=== PATIENT | male | born 2000 | race Caucasian/White ===

== ENCOUNTER 2019-03-08 21:47 | Emergency (ER) | payer OTHER ==
[2019-03-08 22:31] LABS: Urine Blood NEGATIVE (NEG); Urine Glucose NEGATIVE (NEG); Urine Specific Gravity 1.015 (1.005-1.030); Urine pH >8.5 (5.0-7.0)
[2019-03-08 22:32] LABS: Urine Protein 1+ (NEG)
[2019-03-08] MEDS ORDERED: NA CHLORIDE 0.9% 1,000 ML ONE (22:34)
[2019-03-08] MEDS ORDERED: KETOROLAC 30 MG/ML INJ ONE ×2 (22:34→22:38)
[2019-03-08 23:34] LABS: Urine Amorphous Sediment 4+ /HPF (NONE SEEN); Urine Bacteria <20 /HPF (NONE SEEN); Urine Culture Reflex Order NOT NEEDED; Urine RBC NONE SEEN /HPF (NONE SEEN)
--- NOTE | 2019-03-09 00:04 | ER ---
Nurse's Notes [facility] Name: Sidney Balderas Jr Age: 18 yrs Sex: Male : 2000 Arrival Date: 03/08/2019 Time: 21:50 Bed 19 Private MD: Diagnosis: Unspecified renal colic Presentation: 03/08 21:53 Presenting complaint: Patient states: L low back pain since yesterday. States he has aa1 been passing kidney stones x 2 weeks but has not been able to see them, he just feels them. Transition of care: patient was not received from another setting of care. Onset of symptoms was March 07, 2019. Risk Assessment: Do you want to hurt yourself or someone else? Patient reports no desire to harm self or others. Initial Sepsis Screen: Does the patient meet any 2 criteria? No. Patient's initial sepsis screen is negative. Does the patient have a suspected source of infection? No. Patient's initial sepsis screen is negative. Care prior to arrival: None. 21:53 Method Of Arrival: Ambulatory aa1 21:53 Acuity: SUMMER 3 aa1 Triage Assessment: 21:54 General: Appears in no apparent distress. comfortable, Behavior is calm, cooperative, aa1 appropriate for age. Historical: - Allergies: 21:54 No Known Allergies; aa1 - Home Meds: 21:54 None [Active]; aa1 - PMHx: 21:54 ADD/ADHD; Kidney stones; aa1 - PSHx: 21:54 None; aa1 - Immunization history:: Flu vaccine is not up to date. - Social history:: Smoking status: Patient/guardian denies using tobacco. - Ebola Screening: : No symptoms or risks identified at this time. Screenin:00 Abuse screen: Denies threats or abuse. Denies injuries from another. Nutritional tl1 screening: No deficits noted. Tuberculosis screening: No symptoms or risk factors identified. Fall Risk IV access (20 points). Assessment: 21:54 General: Appears in no apparent distress. Behavior is calm, cooperative, appropriate tl1 for age. Pain: Complains of pain in left low back Pain currently is 5 out of 10 on a pain scale. Quality of pain is described as aching, pressure. Neuro: Level of Consciousness is awake, alert, obeys commands, Oriented to person, place, time, situation. Cardiovascular: Denies chest pain. Respiratory: Airway is patent Trachea midline Respiratory effort is even, unlabored, Breath sounds are clear bilaterally. GI: Abdomen is non-distended, Bowel sounds present X 4 quads. Abd is soft and non tender X 4 quads. : No signs and/or symptoms were reported regarding the genitourinary system. Musculoskeletal: Reports pain in left low back. 03/09 00:07 Reassessment: Patient and/or family updated on plan of care and expected duration. Pain tl1 level reassessed. Patient is alert, oriented x 3, equal unlabored respirations, skin warm/dry/pink. Patient denies pain at this time. Patient states feeling better. Patient states symptoms have improved. 00:16 Reassessment: Chem 7 cancelled by provider. Instructed patient to follow up with Dr karol Vásquez on Saturday. Vital Signs: 03/08 21:54 BP 139 / 93; Pulse 91; Resp 18; Temp 97.4; Pulse Ox 100% on R/A; Weight 95.25 kg; aa1 Height 5 ft. 8 in. (172.72 cm); Pain 5/10; 22:46 BP 131 / 89; Pulse 75; Resp 17; Pulse Ox 99% ; Pain 4/10; tl1 03/09 00:05 BP 127 / 89; Pulse 79; Resp 16; Temp 97.6; Pulse Ox 100% ; Pain 0/10; tl1 03/08 21:54 Body Mass Index 31.93 (95.25 kg, 172.72 cm) aa1 ED Course: 03/08 21:50 Patient arrived in ED. ag3 21:54 Triage completed. aa1 21:54 Arm band placed on right wrist. Patient placed in an exam room, on a stretcher. aa1 22:00 Patient has correct armband on for positive identification. Bed in low position. Call tl1 light in reach. Side rails up X 1. 22:05 Marina Muse [facility]-C [facility]. snw 22:05 Lex Daniels MD is Attending Physician. snw 22:15 Inserted saline lock: 20 gauge in right antecubital area, using aseptic technique. tl1 Blood collected. 22:31 Paige Caballero RN is Primary Nurse. tl1 22:31 No provider procedures requiring assistance completed. tl1 03/09 00:02 Erna Vásquez MD is Referral Physician. snw 00:07 IV discontinued, intact, bleeding controlled, No redness/swelling at site. Pressure tl1 dressing applied. Administered Medications: 03/08 22:16 CANCELLED (other intervention used): TORadol 30 mg IM once snw 22:20 Drug: NS 0.9% 1000 ml Route: IV; Rate: 1 bolus; Site: right antecubital; tl1 23:30 Follow up: IV Status: Completed infusion; IV Intake: 1000ml tl1 22:21 Drug: TORadol 30 mg Route: IVP; Infused Over: 2 mins; Site: right antecubital; tl1 23:30 Follow up: Response: No adverse reaction; Marked relief of symptoms; Pain is decreased tl1 Intake: 23:30 IV: 1000ml; Total: 1000ml. tl1 Outcome: 03/09 00:03 Discharge ordered by . snw 00:17 Discharged to home ambulatory, with family. tl1 00:17 Condition: good 00:17 Discharge instructions given to patient, family, Instructed on discharge instructions, follow up and referral plans. medication usage, Demonstrated understanding of instructions, follow-up care, medications, Prescriptions given X 1. 00:18 Patient left the ED. tl1 Signatures: Mayra Benjamin RN RN aa1 Marina Muse, SENIOR REVENUE ACCOUNTANT-C SENIOR REVENUE ACCOUNTANT-Csnw Paige Caballero RN RN tl1 Anabela De Jesus ag3
--- NOTE | 2019-03-09 00:04 | EDPHYS ---
Physician Documentation [facility] Name: Sidney Balderas Jr Age: 18 yrs Sex: Male : 2000 Arrival Date: 03/08/2019 Time: 21:50 Bed 19 Private MD: ED Physician Lex Daniels HPI: 03/08 22:23 This 18 yrs old Male presents to ER via Ambulatory with complaints of Back snw Pain. 22:23 The patient presents with pain that is acute, with no known mechanism of injury. The snw symptoms are located in the left low back. Onset: The symptoms/episode began/occurred gradually, 2 day(s) ago. The pain does not radiate. Associated signs and symptoms: Pertinent positives: none. The problem was sustained history of kidney stones. Severity of symptoms: At their worst the symptoms were very mild. The patient has experienced similar episodes in the past. The patient has not recently seen a physician, and does not have an established primary care provider. Historical: - Allergies: 21:54 No Known Allergies; aa1 - Home Meds: 21:54 None [Active]; aa1 - PMHx: 21:54 ADD/ADHD; Kidney stones; aa1 - PSHx: 21:54 None; aa1 - Immunization history:: Flu vaccine is not up to date. - Social history:: Smoking status: Patient/guardian denies using tobacco. - Ebola Screening: : No symptoms or risks identified at this time. ROS: 22:22 Constitutional: Negative for fever, chills, and weight loss, Eyes: Negative for injury, snw pain, redness, and discharge, ENT: Negative for injury, pain, and discharge, Neck: Negative for injury, pain, and swelling, Cardiovascular: Negative for chest pain, palpitations, and edema, Respiratory: Negative for shortness of breath, cough, wheezing, and pleuritic chest pain, Abdomen/GI: Negative for abdominal pain, nausea, vomiting, diarrhea, and constipation, Back: Negative for injury, left flank discomfort : Negative for injury, bleeding, discharge, and swelling, passes kidney stone weekly x 2. MS/Extremity: Negative for injury and deformity, Skin: Negative for injury, rash, and discoloration, Neuro: Negative for headache, weakness, numbness, tingling, and seizure. Exam: 22:22 Constitutional: This is a well developed, well nourished patient who is awake, alert, snw and in no acute distress. Head/Face: Normocephalic, atraumatic. Eyes: Pupils equal round and reactive to light, extra-ocular motions intact. Lids and lashes normal. Conjunctiva and sclera are non-icteric and not injected. Cornea within normal limits. Periorbital areas with no swelling, redness, or edema. ENT: Nares patent. No nasal discharge, no septal abnormalities noted. Tympanic membranes are normal and external auditory canals are clear. Oropharynx with no redness, swelling, or masses, exudates, or evidence of obstruction, uvula midline. Mucous membranes moist. Neck: Trachea midline, no thyromegaly or masses palpated, and no cervical lymphadenopathy. Supple, full range of motion without nuchal rigidity, or vertebral point tenderness. No Meningismus. Chest/axilla: Normal chest wall appearance and motion. Nontender with no deformity. No lesions are appreciated. Cardiovascular: Regular rate and rhythm with a normal S1 and S2. No gallops, murmurs, or rubs. Normal PMI, no JVD. No pulse deficits. Respiratory: Lungs have equal breath sounds bilaterally, clear to auscultation and percussion. No rales, rhonchi or wheezes noted. No increased work of breathing, no retractions or nasal flaring. Abdomen/GI: Soft, non-tender, with normal bowel sounds. No distension or tympany. No guarding or rebound. No evidence of tenderness throughout. Skin: Warm, dry with normal turgor. Normal color with no rashes, no lesions, and no evidence of cellulitis. MS/ Extremity: Pulses equal, no cyanosis. Neurovascular intact. Full, normal range of motion. Neuro: Awake and alert, GCS 15, oriented to person, place, time, and situation. Cranial nerves II-XII grossly intact. Motor strength 5/5 in all extremities. Sensory grossly intact. Cerebellar exam normal. Normal gait. Psych: Awake, alert, with orientation to person, place and time. Behavior, mood, and affect are within normal limits. 22:22 Back: pain, that is very mild, ROM is normal, normal spinal alignment noted. Vital Signs: 21:54 BP 139 / 93; Pulse 91; Resp 18; Temp 97.4; Pulse Ox 100% on R/A; Weight 95.25 kg; aa1 Height 5 ft. 8 in. (172.72 cm); Pain 5/10; 22:46 BP 131 / 89; Pulse 75; Resp 17; Pulse Ox 99% ; Pain 4/10; tl1 03/09 00:05 BP 127 / 89; Pulse 79; Resp 16; Temp 97.6; Pulse Ox 100% ; Pain 0/10; tl1 03/08 21:54 Body Mass Index 31.93 (95.25 kg, 172.72 cm) aa1 MDM: 03/08 22:05 Patient medically screened. snw 03/09 00:12 Data reviewed: vital signs, nurses notes. Data interpreted: Pulse oximetry: on room air snw is 100 %. Interpretation: normal. Counseling: I had a detailed discussion with the patient and/or guardian regarding: the historical points, exam findings, and any diagnostic results supporting the discharge/admit diagnosis, the presence of at least one elevated blood pressure reading (>120/80) during this emergency department visit, lab results, the need for outpatient follow up, for definitive care, to return to the emergency department if symptoms worsen or persist or if there are any questions or concerns that arise at home. Special discussion: Based on the history and exam findings, there is no indication for further emergent testing or inpatient evaluation. I discussed with the patient/guardian the need to see the primary care provider for further evaluation of the symptoms. I discussed with the patient/guardian the need to see the urologist for further evaluation of the symptoms. 03/08 22:06 Order name: Urine Culture snw 03/08 22:06 Order name: Urine Microscopic Only; Complete Time: 00:02 snw 03/08 22:12 Order name: Urine Dipstick--Ancillary (enter results); Complete Time: 22:46 cm6 03/08 22:06 Order name: Urine Dipstick-Ancillary (obtain specimen); Complete Time: 22:33 snw Administered Medications: 03/08 22:16 CANCELLED (other intervention used): TORadol 30 mg IM once snw 22:20 Drug: NS 0.9% 1000 ml Route: IV; Rate: 1 bolus; Site: right antecubital; tl1 23:30 Follow up: IV Status: Completed infusion; IV Intake: 1000ml tl1 22:21 Drug: TORadol 30 mg Route: IVP; Infused Over: 2 mins; Site: right antecubital; tl1 23:30 Follow up: Response: No adverse reaction; Marked relief of symptoms; Pain is decreased tl1 Disposition: 03/09/19 00:03 Discharged to Home. Impression: Unspecified renal colic. - Condition is Stable. - Discharge Instructions: Hypertension, Kidney Stones, Renal Colic, Dietary Guidelines to Help Prevent Kidney Stones, Rehydration, Adult. - Prescriptions for Diclofenac Sodium 75 mg Oral Tablet Sustained Release - take 1 tablet by ORAL route 2 times per day; 30 tablet. - Medication Reconciliation Form, Thank You Letter, Antibiotic Education, Prescription Opioid Use, Work release form form. - Follow up: Private Physician; When: 1 - 2 days; Reason: Recheck today's complaints, Continuance of care, Re-evaluation by your physician. Follow up: Emergency Department; When: As needed; Reason: Worsening of condition. Follow up: Erna Vásquez MD; When: 1 week; Reason: Recheck today's complaints, Continuance of care. Signatures: Dispatcher [employer] [facility] Mayra Benjamin, RN RN aa1 Marina Muse, KIER HAND-C KIER HAND-Csnw Paige Caballero, RN RN tl1 Corrections: (The following items were deleted from the chart) 22:16 22:06 TORadol 30 mg IM once ordered. snw snw 03/09 00:06 03/08 22:18 BASIC METABOLIC PANEL+C.LAB.BRZ ordered. [facility] 03/09 00:18 00:03 03/09/2019 00:03 Discharged to Home. Impression: Unspecified renal colic. tl1 Condition is Stable. Forms are Medication Reconciliation Form, Thank You Letter, Antibiotic Education, Prescription Opioid Use. Follow up: Private Physician; When: 1 - 2 days; Reason: Recheck today's complaints, Continuance of care, Re-evaluation by your physician. Follow up: Emergency Department; When: As needed; Reason: Worsening of condition. Follow up: Erna Vásquez; When: 1 week; Reason: Recheck today's complaints, Continuance of care. snw
== END 2019-03-09 00:18 | disposition home or self-care (01) ==
LOC: ER 21:47
DX: N23 Unspecified renal colic (principal)
CPT/HCPCS: 36415; 81003; 81015; 87086; 87088; 96361; 96374; 99284; J7030

== ENCOUNTER 2022-06-14 00:57 | Emergency (ER) | payer OTHER, SELFPAY ==
--- OUTSIDE RECORDS SUMMARY | 2022-06-14 01:00 | XMS REPORT | Continuity of Care Document ---
:2000 Author Organization [facility] t Address [address] [place] [address] Care Team Providers Name Role Phone GoodwinHaydee Attending Clinician Unavailable Venita Dorantes RN Attending Clinician Unavailable Marky Caicedo Attending Clinician Marky SCHAFER Attending Clinician Unavailable Payers Payer Name Policy Type Policy Number Effective Date Expiration Date S ource Problems This patient has no known problems. Allergies, Adverse Reactions, Alerts Allergy Allergy Status Severity Reaction(s) Onset Inactive Treating Comm ents Source Name Type Date Date Clinician NO KNOWN Drug Active [facility] ALLERGIE Class ity of [facility] Social History Social Habit Start Date Stop Date Quantity Comments Source Sex [facility] Exposure to SARS-CoV-2 Not sure [facility] [place] [facility] Smoking Status Start Date Stop Date Source Unknown if ever smoked [facility] Medications Ordered Filled Start Stop Current Ordering Indication Dosage Frequency Signature Comments Components Source Medication Medication Date Date Medication? Clinician (SIG) Name Name benzonatate 2019-09 Yes [id number] 200mg Take 1 [facility] 200 mg 2-11 capsule by ity of capsule 00:00: mouth 3 [place] 00 (three) Medical times Branch daily as needed for Cough for up to 20 doses. ibuprofen 2019-09 Yes [id number] 600mg Take 1 [facility] 600 mg 2-11 tablet by ity of tablet 00:00: mouth [place] 00 every 6 Medical (six) Branch hours as needed for Pain (scale 4-6). predniSONE 2019-09 Yes [id number] 1 PO BID x Univers 20 mg 2-11 4 days ity of tablet 00:00: [place] 00 [facility] Branch benzonatate 2019-09 Yes [id number] 200mg Take 1 Univers 200 mg 2-11 capsule by ity of capsule 00:00: mouth 3 00 (three) Medical times Branch daily as needed for Cough for up to 20 doses. ibuprofen 2019-09 Yes [id number] 600mg Take 1 [facility] 600 mg 2-11 tablet by ity of tablet 00:00: mouth [place] 00 every 6 Medical (six) Branch hours as needed for Pain (scale 4-6). predniSONE 2019-09 Yes [id number] 1 PO BID x Univers 20 mg 2-11 4 days ity of tablet 00:00: [place] 00 Medical Branch Vital Signs Vital Name Observation Time Observation Value Comments Source Body temperature 2020-09-10 01:13:00 37.94 Khushbu [facility] Respiratory rate 2020-09-10 01:13:00 18 /min [facility] Body height 2020-09-10 01:13:00 172.7 cm [facility] Body weight 2020-09-10 01:13:00 95.255 kg [facility] BMI 2020-09-10 01:13:00 31.93 kg/m2 [facility] Oxygen saturation in 2020-09-10 01:13:00 99 /min [facility] Arterial blood by [facility] Pulse oximetry Branch Heart rate 2020-09-10 01:13:00 103 /min [facility] Procedures Procedure Date / Time Performed Performing Clinician Sour e NOTICE OF PRIVACY 2020-09-10 01:06:32 Doctor Unassigned, No [facility] Name [facility] Branch CONSENT/REFUSAL FOR 2020-09-10 01:06:08 Doctor Unassigned, No [facility] DIAGNOSIS AND Name Medical Branch TREATMENT Encounters Start End Encounter Admission Attending Care Care Encounter Source Date/Time Date/Time Type Type Clinicians Facility Department ID 2021-10-25 Outpatient Haydee Goodwin [facility] [id number] 2 Common 12:34:02 [id number] [facility] 2021-10-25 [id number] Common 12:32:45 [id number] [facility] 2021-10-25 Outpatient Hadyee Goodwin [facility] [id number] 2 Common 12:19:39 [id number] [facility] 2020-11-27 2020-11-27 Outpatient [facility] [id number] Common 00:00:00 00:00:00 [facility] 2020-11-25 2020-11-25 Outpatient [facility] [id number] Common 00:00:00 00:00:00 [facility] 2020-09-10 2020-09-10 Telephone KATHERINE Dorantes [id number] Univers 00:00:00 00:00:00 Venita HOWARD [id number] it [facility] [id number] Juni as [id number] [facility] 019 Branch 2020-09-09 2020-09-09 Emergency Marky Schafer [facility] [id number] Univers 19:13:00 20:00:00 Rafia Quinn [id number] i [id number] [facility] [id number] [facility] 084 Branch 2020-09-09 2020-09-09 Emergency X Marky SCHAFER [facility] ERT [id number] Univers 19:08:00 19:08:00 ity [facility] Results This patient has no known results.
[2022-06-14] MEDS ORDERED: MORPHINE 4 MG/ML SYR ONE (02:08)
[2022-06-14] MEDS ORDERED: ONDANSETRON 4 MG/2 ML VIAL ONE (02:08)
[2022-06-14] MEDS ORDERED: NA CHLORIDE 0.9% 1,000 ML ONE (02:08)
[2022-06-14 02:39] LABS: Absolute Lymphocytes (CBC) 1.8 K/uL (0.7-4.9); Lymphocytes % 12.5 % (15.3-44.8); MCV 81.5 fL (80-100); MPV 8.7 fL (7.6-11.3); RBC Red Blood Cell Count 5.27 M/uL (4.33-5.43)
[2022-06-14 02:51] LABS: Albumin 4.4 g/dL (3.4-5.0); Bilirubin Total 0.6 mg/dL (0.2-1.0); Potassium 3.3 mmol/L (3.5-5.1); Protein, Total 7.7 g/dL (6.4-8.2)
[2022-06-14 02:52] LABS: Urine Blood 2+ (Negative); Urine Glucose Negative (Negative); Urine Protein Negative (Negative); Urine Specific Gravity >=1.030 (1.005-1.030)
[2022-06-14] MEDS ORDERED: KETOROLAC 30 MG/ML INJ ONE (02:55)
--- NOTE | 2022-06-14 03:38 | ER ---
Nurse's Notes [facility] Name: Sidney Balderas Jr Age: 22 yrs Sex: Male : 2000 Arrival Date: 06/14/2022 Time: 01:00 Bed 12 Private MD: Diagnosis: Right renal calculus at [facility].;Right flank pain Presentation: 06/14 01:08 Chief complaint: Patient states: he is having right sided flank pain since 1730 last bb night has vomited x 1 has past history of kidney stones a while ago. Coronavirus screen: At this time, the client does not indicate any symptoms associated with coronavirus-19. Ebola Screen: No symptoms or risks identified at this time. Initial Sepsis Screen: Does the patient meet any 2 criteria? No. Patient's initial sepsis screen is negative. Does the patient have a suspected source of infection? No. Patient's initial sepsis screen is negative. Risk Assessment: Do you want to hurt yourself or someone else? Patient reports no desire to harm self or others. Onset of symptoms was June 13, 2022. 01:08 Method Of Arrival: Ambulatory bb 01:08 Acuity: SUMMER 3 bb Historical: - Allergies: 01:10 No Known Allergies; bb - Home Meds: 01:10 None [Active]; bb - PMHx: 01:10 ADD/ADHD; Kidney stones; bb - Immunization history:: Client reports having NOT received the Covid vaccine. - Social history:: Smoking status: Patient denies any tobacco usage or history of. Screenin:19 Abuse screen: Denies threats or abuse. Nutritional screening: No deficits noted. bb Tuberculosis screening: No symptoms or risk factors identified. Fall Risk None identified. Assessment: 02:19 General: Appears in no apparent distress. uncomfortable, Behavior is calm, cooperative. bb Pain: Complains of pain in right flank Pain currently is 8 out of 10 on a pain scale. Neuro: Level of Consciousness is awake, alert, obeys commands, Oriented to person, place, time, situation. Cardiovascular: Capillary refill < 3 seconds Patient's skin is warm and dry. Respiratory: Respiratory effort is even, unlabored, Respiratory pattern is regular. GI: Abdomen is non-distended, Reports vomiting, x 1. Derm: Skin is pink, warm \T\ dry. Musculoskeletal: Circulation, motion, and sensation intact. 02:28 Reassessment: pt to CT via wheelchair accompanied by traffic engineering technician. bb 02:42 Reassessment: pt states pain went down for a little bit but is worse again Dr Dave bb notified new orders received pt medicated see NOV. 03:52 Reassessment: Patient is alert, oriented x 3, equal unlabored respirations, skin bb warm/dry/pink. pt verbalized understanding of and agrees to plan of care discharge instructions given pt ambulated with steady gait to exit accompanied by family Patient states feeling better. Patient states symptoms have improved. Vital Signs: 01:08 BP 148 / 100; Pulse 73; Resp 16 S; Temp 98.6(O); Pulse Ox 100% on R/A; Weight 83.91 kg bb (R); Height 5 ft. 7 in. (170.18 cm) (R); Pain 7/10; 02:43 BP 137 / 103; Pulse 81; Resp 16 S; Pulse Ox 99% on R/A; Pain 6/10; bb 03:54 BP 124 / 92; Pulse 79; Resp 16 S; Pulse Ox 99% on R/A; Pain 4/10; bb 01:08 Body Mass Index 28.97 (83.91 kg, 170.18 cm) bb ED Course: 01:00 Patient arrived in ED. ja2 01:10 Triage completed. bb 01:10 Arm band placed on Patient placed in an exam room, on a stretcher, on pulse oximetry. bb Family accompanied patient. 01:32 Jassi Dave MD is Attending Physician. kdr 01:40 Diana Stallworth RN is Primary Nurse. bb 02:05 Initial lab(s) drawn, by la, sent to lab. Urine collected: clean catch specimen, clear. bb Inserted saline lock: 20 gauge in right antecubital area, using aseptic technique. Blood collected. 02:19 Patient has correct armband on for positive identification. Bed in low position. Call bb light in reach. Side rails up X 1. Adult w/ patient. Pulse ox on. NIBP on. Warm blanket given. 02:42 CT Stone Protocol In Process Unspecified. EDMS 03:37 Ovi Tolliver MD is Referral Physician. kdr 03:54 No provider procedures requiring assistance completed. IV discontinued, intact, bb bleeding controlled, No redness/swelling at site. Pressure dressing applied. Administered Medications: 02:06 Drug: NS 0.9% 1000 ml Route: IV; Rate: 1 bolus; Site: right antecubital; bb 03:00 Follow up: IV Status: Completed infusion; IV Intake: 950ml bb 02:06 Drug: Zofran (Ondansetron) 4 mg Route: IVP; Site: right antecubital; bb 02:44 Follow up: Response: No adverse reaction bb 02:08 Drug: morphine 4 mg Route: IVP; Infused Over: 4 mins; Site: right antecubital; bb 02:44 Follow up: Response: No adverse reaction; Pain is decreased bb 02:48 Drug: Ketorolac 15 mg Route: IVP; Site: right antecubital; bb 03:30 Follow up: Response: Pain is decreased bb Medication: 02:19 VIS not applicable for this client. bb Intake: 03:00 IV: 950ml; Total: 950ml. bb Outcome: 03:38 Discharge ordered by . kdr 03:55 Discharged to home ambulatory, with family. bb 03:55 Condition: stable 03:55 Discharge instructions given to patient, Instructed on discharge instructions, follow up and referral plans. no driving heavy equipment, medication usage, Demonstrated understanding of instructions, follow-up care, medications, Prescriptions given X 4. 03:55 Patient left the ED. bb Signatures: Dispatcher [employer] EDJassi Powers MD MD kdr Ballard, Brenda, RN RN Ayah Dave
--- NOTE | 2022-06-14 03:39 | EDPHYS ---
Physician Documentation [facility] Name: Sidney Balderas Jr Age: 22 yrs Sex: Male : 2000 Arrival Date: 06/14/2022 Time: 01:00 Bed 12 Private MD: ED Physician Jassi Dave HPI: 06/14 04:34 This 22 yrs old Male presents to ER via Ambulatory with complaints of Back kdr Pain, Flank Pain. 04:35 Patient states that he has been having right-sided flank pain since about 5:30 PM this kdr last evening. He has vomited 1 time. He does have a past history of kidney stones with the last episode being about 1 year ago.. Severity of symptoms: At their worst the symptoms were mild moderate just prior to arrival, in the emergency department the symptoms are unchanged. The patient has experienced a previous episode. The patient has not recently seen a physician. Historical: - Allergies: 01:10 No Known Allergies; bb - Home Meds: 01:10 None [Active]; bb - PMHx: 01:10 ADD/ADHD; Kidney stones; bb - Immunization history:: Client reports having NOT received the Covid vaccine. - Social history:: Smoking status: Patient denies any tobacco usage or history of. ROS: 04:35 Constitutional: Negative for fever, chills, and weight loss, Eyes: Negative for injury, kdr pain, redness, and discharge, Neck: Negative for injury, pain, and swelling, Cardiovascular: Negative for chest pain, palpitations, and edema, Respiratory: Negative for shortness of breath, cough, wheezing, and pleuritic chest pain, Abdomen/GI: Negative for abdominal pain, nausea, vomiting, diarrhea, and constipation, Back: Negative for injury and pain, MS/Extremity: Negative for injury and deformity, Skin: Negative for injury, rash, and discoloration, Neuro: Negative for headache, weakness, numbness, tingling, and seizure activity. Psych: Negative for depression, anxiety, suicide ideation, homicidal ideation, and hallucinations, Allergy/Immunology: Negative for hives, rash, and allergies, Endocrine: Negative for neck swelling, polydipsia, polyuria, polyphagia, and marked weight changes, Hematologic/Lymphatic: Negative for swollen nodes, abnormal bleeding, and unusual bruising. Exam: 04:35 Constitutional: This is a well developed, well nourished patient who is awake, alert, kdr and in no acute distress. Head/Face: Normocephalic, atraumatic. Eyes: Pupils equal round and reactive to light, extra-ocular motions intact. Lids and lashes normal. Conjunctiva and sclera are non-icteric and not injected. Cornea within normal limits. Periorbital areas with no swelling, redness, or edema. Neck: Trachea midline, no thyromegaly or masses palpated, and no cervical lymphadenopathy. Supple, full range of motion without nuchal rigidity, or vertebral point tenderness. No Meningismus. Chest/axilla: Normal chest wall appearance and motion. Nontender with no deformity. No lesions are appreciated. Cardiovascular: Regular rate and rhythm with a normal S1 and S2. No gallops, murmurs, or rubs. Normal PMI, no JVD. No pulse deficits. Respiratory: Lungs have equal breath sounds bilaterally, clear to auscultation and percussion. No rales, rhonchi or wheezes noted. No increased work of breathing, no retractions or nasal flaring. Abdomen/GI: Soft, non-tender, with normal bowel sounds. No distension or tympany. No guarding or rebound. No evidence of tenderness throughout. Back: No spinal tenderness. No costovertebral tenderness. Full range of motion. Skin: Warm, dry with normal turgor. Normal color with no rashes, no lesions, and no evidence of cellulitis. MS/ Extremity: Pulses equal, no cyanosis. Neurovascular intact. Full, normal range of motion. Neuro: Awake and alert, GCS 15, oriented to person, place, time, and situation. Cranial nerves II-XII grossly intact. Motor strength 5/5 in all extremities. Sensory grossly intact. Cerebellar exam normal. Normal gait. Psych: Awake, alert, with orientation to person, place and time. Behavior, mood, and affect are within normal limits. Vital Signs: 01:08 BP 148 / 100; Pulse 73; Resp 16 S; Temp 98.6(O); Pulse Ox 100% on R/A; Weight 83.91 kg bb (R); Height 5 ft. 7 in. (170.18 cm) (R); Pain 7/10; 02:43 BP 137 / 103; Pulse 81; Resp 16 S; Pulse Ox 99% on R/A; Pain 6/10; bb 03:54 BP 124 / 92; Pulse 79; Resp 16 S; Pulse Ox 99% on R/A; Pain 4/10; bb 01:08 Body Mass Index 28.97 (83.91 kg, 170.18 cm) bb MDM: 03:38 Patient medically screened. kdr 04:35 Data reviewed: vital signs, nurses notes, old medical records, radiologic studies. kdr Counseling: I had a detailed discussion with the patient and/or guardian regarding: the historical points, exam findings, and any diagnostic results supporting the discharge/admit diagnosis, lab results, radiology results, the need for outpatient follow up. 06/14 01:38 Order name: CBC with Diff; Complete Time: 03:33 06/14 01:38 Order name: CMP; Complete Time: 03:33 bb 06/14 01:38 Order name: CT Stone Protocol 06/14 02:53 Order name: Urine Dipstick-Ancillary; Complete Time: 03:33 EDMS 06/14 01:38 Order name: IV Saline Lock; Complete Time: 02:19 bb 06/14 01:38 Order name: Labs collected and sent; Complete Time: 02:19 bb 06/14 01:39 Order name: Urine Dipstick-Ancillary (obtain specimen); Complete Time: 02:19 bb Administered Medications: 02:06 Drug: NS 0.9% 1000 ml Route: IV; Rate: 1 bolus; Site: right antecubital; bb 03:00 Follow up: IV Status: Completed infusion; IV Intake: 950ml bb 02:06 Drug: Zofran (Ondansetron) 4 mg Route: IVP; Site: right antecubital; bb 02:44 Follow up: Response: No adverse reaction bb 02:08 Drug: morphine 4 mg Route: IVP; Infused Over: 4 mins; Site: right antecubital; bb 02:44 Follow up: Response: No adverse reaction; Pain is decreased bb 02:48 Drug: Ketorolac 15 mg Route: IVP; Site: right antecubital; bb 03:30 Follow up: Response: Pain is decreased bb Disposition Summary: 06/14/22 03:38 Discharge Ordered Location: Home kdr Problem: new kdr Symptoms: have improved kdr Condition: Stable kdr Diagnosis - Right renal calculus at UPJ. kdr - Right flank pain kdr Followup: kdr - With: Private Physician - When: 2 - 3 days - Reason: If symptoms return, Further diagnostic work-up, Recheck today's complaints, Continuance of care, Re-evaluation by your physician Followup: kdr - With: Ovi Tolliver MD - When: 2 - 3 days - Reason: If symptoms return, Further diagnostic work-up, Recheck today's complaints, Continuance of care, Re-evaluation by your physician Discharge Instructions: - Discharge Summary Sheet kdr - Kidney Stones, [id number] kdr Forms: - Medication Reconciliation Form kdr - Thank You Letter kdr - Antibiotic Education kdr - Prescription Opioid Use kdr Prescriptions: - Flomax 0.4 mg Oral capsule - take 1 capsule by ORAL route once daily 1/2 hour following the same meal each kdr day; 10 capsule; Refills: 0, Product Selection Permitted - Zofran 4 mg Oral Tablet - take 1 tablet by ORAL route every 4-6 hours As needed; 12 tablet; Refills: 0, kdr Product Selection Permitted - Tramadol 50 mg Oral Tablet - take 1 tablet by ORAL route every 8 hours as needed; 12 tablet; Refills: 0, kdr Product Selection Permitted - Bactrim DS 800-160 mg Oral Tablet - take 1 tablet by ORAL route every 12 hours for 3 days; 6 tablet; Refills: 0, kdr Product Selection Permitted Signatures: Dispatcher [employer] Jassi Chase MD MD kdr Diana Stallworth, RN RN bb
--- NOTE | 2022-06-14 12:32 | RAD REPORT ---
EXAM DESCRIPTION: CT - Stone Protocol - 06/14/2022 8:19 am CLINICAL HISTORY: 22 years, Male, Flank pain, kidney stone suspected COMPARISON: 03/14/2015. TECHNIQUE: Multiple transaxial tomograms of the abdomen and pelvis were performed from the lung base s to the symphysis pubis 3 mm slice thickness at 3 mm interval reconstruction, without administration of IV and oral contrast. Multiplanar reformats in the sagittal and coronal plane were generated and reviewed. This exam was performed according to our departmental dose-optimization protocol, which includes auto mated exposure control, adjustment of the mA and/or kV according to patient size and/or use of iterat aditi reconstruction technique. FINDINGS: The lack of IV and oral contrast limits evaluation of solid organs, subtle lesions cannot be excluded. The lung bases demonstrate to be clear. Grossly the unopacified liver, gallbladder, pancreas, spleen and adrenal glands demonstrate to be wit hin normal limits, no significant focal lesions were identified. There is slight increased size of the right kidney with right hydronephrosis and proximal right hydro ureter up to the level of the UPJ where there is a 4.6 x 4.7 mm calculus on axial image 78 and de dios l image 40. There is a residual calculus within the lower pole measuring 7.3 mm on image 64. The left kidney demonstrate a 5.2 mm upper pole calculus on image 49. There is no evidence for left h ydronephrosis and pressure left hydroureter. Grossly the unopacified stomach, small bowel and large bowel demonstrate to be within normal limits. There is no evidence for bowel dilatation/or free air. The appendix is unremarkable. The urinary bladder demonstrate to be within normal limits. The prostate gland demonstrate to be with in normal limits. The aorta demonstrate to be within normal limits. There is no retroperitoneal lym phadenopathy. There is no evidence for ascites. The rest of the soft tissue demonstrate to be gross ly unremarkable. IMPRESSION: 4.6 x 4.7 mm calculus at the right UPJ with right hydronephrosis and proximal right hydr oureter. Bilateral nephrolithiasis. Electronically signed by: Delmar Vasquez MD 06/14/2022 2:58 AM CDT Due to temporary technical issues with the PACS/Fluency reporting system, reports are being signed by the in house radiologists without review as a courtesy to insure prompt reporting. The interpreting radiologist is fully responsible for the content of the report.
[2022-06-15 06:37] VITALS: TEMP 98.6
[2022-06-15 06:44] VITALS: O2SAT 99
[2022-06-15 06:59] VITALS: BP 124/92
== END 2022-06-14 03:55 | disposition home or self-care (01) ==
LOC: ER 00:57
DX: N20.0 Calculus of kidney (principal); Z87.442 Personal history of urinary calculi
CPT/HCPCS: 36415; 74176; 76377; 80053; 81003; 85025; 96361; 96374; 96375; 99284; J2405; J7030

== ENCOUNTER 2024-03-09 08:35 | Emergency (ER) | payer SELFPAY ==
[2024-03-09 09:10] LABS: Absolute Basophils 0.1 K/uL (0-0.5); Absolute Eosinophils 0.5 K/uL (0-0.5); Absolute Lymphocytes (CBC) 4.1 K/uL (0.7-4.9); Absolute Monocytes 0.6 K/uL (0.1-1.3); Absolute Neutrophil 3.7 K/uL (1.8-8.0); Basophils % 1.2 % (0-1.3); Eosinophils % 5.1 % (0-4.4); Hematocrit 43.6 % (39.6-49.0); MCH 28.5 pg (27.0-35.0); MCHC 34.5 g/dL (32.0-36.0); MCV 82.7 fL (80-100); MPV 8.6 fL (7.6-11.3); Monocytes % 6.6 % (3.3-12.3); Neutrophils % 41.1 % (41.7-73.7); Nucleated Red Blood Cells % 0.1 % (0-0); Platelets 254 thou/uL (152-406); RBC Red Blood Cell Count 5.28 M/uL (4.33-5.43); Red Cell Distribution Width 13.7 % (12.1-15.2)
[2024-03-09 09:15] LABS: Calcium Oxalate Crystals- Ur Few /HPF (None Seen); Specific Gravity 1.016 (1.005-1.030); Sqamous Epithelial None Seen /HPF (None Seen); Urine Bacteria None Seen /HPF (<20); Urine Bilirubin NEGATIVE (Negative); Urine Blood 3+ (OVER) (Negative); Urine Clarity Extremely Turbid (Clear); Urine Color Yellow (Yellow); Urine Culture Reflex Order NOT NEEDED; Urine Glucose NEGATIVE (Negative); Urine Ketones NEGATIVE (Negative); Urine Microscopic Reflex YN ORDER UMIC; Urine Mucus Slight /HPF (None Seen); Urine Nitrite NEGATIVE (Negative); Urine Protein TRACE (Negative); Urine RBC >50 /HPF (None Seen); Urine Urobilinogen 1+ (Normal); Urine WBC <5 /HPF (<5); Urine Yeast (Budding) Trace /HPF (None Seen)
--- NOTE | 2024-03-09 09:21 | RAD REPORT ---
EXAM DESCRIPTION: CT - Abdomen Pelvis Wo Contrast - 03/09/2024 9:03 am CLINICAL HISTORY: Abdominal pain. FLANK PAIN COMPARISON: Stone Protocol dated 06/14/2022 TECHNIQUE: CT imaging of the abdomen and pelvis was performed without contrast. Solid organ, bowel a nd vascular assessment is limited due to lack of IV and oral contrast. All CT scans are performed using dose optimization technique as appropriate and may include automated exposure control or mA/KV adjustment according to patient size. FINDINGS: The lower lung stephenson are clear. The liver, spleen, pancreas, adrenal glands are within normal limits for a limited non-contrast exami nation.Calculi are present in the calices of both kidneys, largest on the left inferior calyx measuri ng 7 mm. No ureter stone. No hydronephrosis bilaterally. No bowel obstruction, free air, free fluid or abscess. Mild diverticulosis of the sigmoid colon. The appendix is normal. The osseous structures are within normal limits. IMPRESSION: Bilateral nephrolithiasis without hydronephrosis. A limited non-contrast examination was performed as detailed.
[2024-03-09 09:28] LABS: Albumin 4.4 g/dL (3.4-5.0); Albumin/Globulin Ratio 1.4 (1.1-1.8); Anion Gap 6.3 mEq/L (5.0-15.0); Bilirubin Total 0.6 mg/dL (0.2-1.0); Globulin 3.2 g/dL (2.3-3.5); Potassium 3.3 mEq/L (3.5-5.1); Protein, Total 7.6 g/dL (6.4-8.2)
--- NOTE | 2024-03-09 09:35 | EDPHYS ---
Physician Documentation [facility] Name: Sidney Balderas Jr Age: 23 yrs Sex: Male : 2000 Arrival Date: 03/09/2024 Time: 08:35 Bed 15 Private MD: ED Physician Jigna Blandon HPI: 03/09 08:58 This 23 yrs old Male presents to ER via Ambulatory with complaints of Blood in sp3 Urine. 08:58 23-year-old male with history of ureterolithiasis/kidney stones presents to the ED with sp3 a 2-day history of dark urine and episodic blood in the urine coupled with left flank pain. Patient states is not as bad as his last kidney stone but wanted to get ahead of it. He denies any other symptoms including fever, headache, URI symptoms, chest pain, upper back pain, vomiting, diarrhea, rash, syncope, bleeding, or any other signs or symptoms on ROS at this time.. Historical: - PMHx: 08:42 ADD/ADHD; Kidney stones; ll1 - Immunization history:: Adult Immunizations up to date. - Infectious Disease History:: Denies. - Social history:: Smoking status: Patient denies any tobacco usage or history of. ROS: 09:00 Constitutional: Negative for fever, chills, and weight loss, Eyes: Negative for injury, sp3 pain, redness, and discharge, ENT: Negative for injury, pain, and discharge, Neck: Negative for injury, pain, and swelling, Cardiovascular: Negative for chest pain, palpitations, and edema, Respiratory: Negative for shortness of breath, cough, wheezing, and pleuritic chest pain, MS/Extremity: Negative for injury and deformity, Skin: Negative for injury, rash, and discoloration, Neuro: Negative for headache, weakness, numbness, tingling, and seizure, Psych: Negative for depression, anxiety, suicide ideation, homicidal ideation, and hallucinations, Allergy/Immunology: Negative for hives, rash, and allergies, Endocrine: Negative for neck swelling, polydipsia, polyuria, polyphagia, and marked weight changes, 09:00 All other systems are negative, Exam: 09:00 Constitutional: This is a well developed, well nourished patient who is awake, alert, sp3 and in no acute distress. Head/Face: Normocephalic, atraumatic. Eyes: Pupils equal round and reactive to light, extra-ocular motions intact. Lids and lashes normal. Conjunctiva and sclera are non-icteric and not injected. Cornea within normal limits. Periorbital areas with no swelling, redness, or edema. Neck: Trachea midline, no thyromegaly or masses palpated, and no cervical lymphadenopathy. Supple, full range of motion without nuchal rigidity, or vertebral point tenderness. No Meningismus. Chest/axilla: Normal chest wall appearance and motion. Nontender with no deformity. No lesions are appreciated. Cardiovascular: Regular rate and rhythm with a normal S1 and S2. No gallops, murmurs, or rubs. Normal PMI, no JVD. No pulse deficits. Respiratory: Lungs have equal breath sounds bilaterally, clear to auscultation and percussion. No rales, rhonchi or wheezes noted. No increased work of breathing, no retractions or nasal flaring. Abdomen/GI: Soft, non-tender, with normal bowel sounds. No distension or tympany. No guarding or rebound. No evidence of tenderness throughout. Skin: Warm, dry with normal turgor. Normal color with no rashes, no lesions, and no evidence of cellulitis. MS/ Extremity: Pulses equal, no cyanosis. Neurovascular intact. Full, normal range of motion. Neuro: Awake and alert, GCS 15, oriented to person, place, time, and situation. Cranial nerves II-XII grossly intact. Motor strength 5/5 in all extremities. Sensory grossly intact. Cerebellar exam normal. Normal gait. Psych: Awake, alert, with orientation to person, place and time. Behavior, mood, and affect are within normal limits. 09:00 Back: Left CVA tenderness noted., Vital Signs: 08:53 BP 136 / 92; Pulse 82; Resp 16; Temp 98; Pulse Ox 100% ; Weight 81.65 kg; Height 5 ft. bp 7 in. ; 09:30 BP 126 / 81; Pulse 81; Resp 16; Pulse Ox 98% ; bp 08:53 Body Mass Index 28.19 (81.65 kg, 170.18 cm) bp MDM: 08:51 Patient medically screened. sp3 09:00 Data reviewed: vital signs, nurses notes, lab test result(s), radiologic studies. ED sp3 course: 23-year-old male with left flank pain. Differential diagnosis includes UTI/pyelonephritis spectrum, ureterolithiasis/kidney stone spectrum, colitis, musculoskeletal, among others. I am not highly suspicious for aortic pathology, scrotal pathology, sepsis, shock, or any other critical pathology at this time. Workup will include CT scan of the abdomen pelvis, laboratory values and urine analysis. Patient declined pain medication at this time. Disposition pending workup and patient course.. 09:32 ED course: CT scan demonstrates multiple kidney stones in the kidneys however ureters sp3 are clean. No hydronephrosis noted. UA demonstrates RBCs consistent with probable already passed kidney stone. Remainder of blood work is without significant findings. Patient's pain continues to be mild likely due to ureteral spasm. We will discharge patient home at this time with general precautions and pain medication with follow-up to urology.. 03/09 08:54 Order name: CBC with Diff; Complete Time: 09:22 sp3 03/09 08:54 Order name: CMP; Complete Time: 09:30 sp3 03/09 08:54 Order name: Lipase; Complete Time: 09:30 sp3 03/09 08:54 Order name: Urinalysis w/ reflexes; Complete Time: 09:22 sp3 03/09 08:54 Order name: CK; Complete Time: 09:30 sp3 03/09 08:54 Order name: CT Abd/Pelvis - Without Contrast; Complete Time: 09:22 sp3 03/09 08:54 Order name: IV Saline Lock; Complete Time: 08:56 sp3 03/09 08:54 Order name: Labs collected and sent; Complete Time: 08:56 sp3 Administered Medications: No medications were administered Disposition Summary: 03/09/24 09:34 Discharge Ordered Notes: Location: Home sp3 Condition: Stable sp3 Diagnosis - Kidney stone, flank pain sp3 Followup: sp3 - With: Private Physician - When: Upon discharge from the Emergency Department - Reason: Continuance of care Followup: sp3 - With: Ovi Tolliver MD - When: Upon discharge from the Emergency Department - Reason: Recheck today's complaints Discharge Instructions: - Discharge Summary Sheet sp3 - Kidney Stones sp3 - Dietary Guidelines to Help Prevent Kidney Stones sp3 Forms: - Work release form bd - Medication Reconciliation Form sp3 - Antibiotic Education sp3 - Prescription Opioid Use sp3 - Patient Portal Instructions sp3 - Leadership Thank You Letter sp3 Prescriptions: - Tramadol 50 mg Oral Tablet - take 1 tablet ORAL route every 8 hours as needed; 12 tablet; Refills: 0, sp3 Product Selection Permitted Signatures: Dispatcher [employer] Fracisco Moore RN RN Chuck Little RN RN ll1 Jigna Blandon MD MD sp3
--- NOTE | 2024-03-09 09:35 | ER ---
Nurse's Notes [facility] Name: Sidney Balderas Jr Age: 23 yrs Sex: Male : 2000 Arrival Date: 03/09/2024 Time: 08:35 Bed 15 Private MD: Diagnosis: Kidney stone, flank pain Presentation: 03/09 08:53 Chief complaint: Patient states: HEMATURIA x3 DAYS. Coronavirus screen: At this time, bp the client does not indicate any symptoms associated with coronavirus-19. Ebola Screen: No symptoms or risks identified at this time. Initial Sepsis Screen: Does the patient meet any 2 criteria? No. Patient's initial sepsis screen is negative. Does the patient have a suspected source of infection? No. Patient's initial sepsis screen is negative. Risk Assessment: Do you want to hurt yourself or someone else? Patient reports no desire to harm self or others. Onset of symptoms is unknown. 08:53 Method Of Arrival: Ambulatory bp 08:53 Acuity: SUMMER 3 bp Triage Assessment: 08:53 General: Appears in no apparent distress. Behavior is calm, cooperative, appropriate bp for age. Pain: Complains of pain in back. : Reports BLOOD IN URINE. Historical: - PMHx: 08:42 ADD/ADHD; Kidney stones; ll1 - Immunization history:: Adult Immunizations up to date. - Infectious Disease History:: Denies. - Social history:: Smoking status: Patient denies any tobacco usage or history of. Screenin:54 [facility] ED Fall Risk Assessment (Adult) History of falling in the last 3 months, bp including since admission No falls in past 3 months (0 pts). Abuse screen: Denies threats or abuse. Denies injuries from another. Nutritional screening: No deficits noted. Tuberculosis screening: No symptoms or risk factors identified. Assessment: 08:54 General: Appears in no apparent distress. Behavior is calm, cooperative, appropriate bp for age. : Urine is blood tinged. 09:33 Reassessment: Patient appears in no apparent distress at this time. Patient is alert, bp oriented x 3, equal unlabored respirations, skin warm/dry/pink. 09:43 Reassessment: DC HOME AMBULATORY WITH FAMILY. bp Vital Signs: 08:53 BP 136 / 92; Pulse 82; Resp 16; Temp 98; Pulse Ox 100% ; Weight 81.65 kg; Height 5 ft. bp 7 in. ; 09:30 BP 126 / 81; Pulse 81; Resp 16; Pulse Ox 98% ; bp 08:53 Body Mass Index 28.19 (81.65 kg, 170.18 cm) bp ED Course: 08:37 Patient arrived in ED. rg4 08:38 Jigna Blandon MD is Attending Physician. sp3 08:42 Arm band placed on Patient placed in an exam room, on a stretcher. ll1 08:53 Fracisco Kumar, RN is Primary Nurse. bp 08:53 Triage completed. bp 08:54 Patient has correct armband on for positive identification. bp 08:56 Bed in low position. Call light in reach. Side rails up X 1. Adult w/ patient. Door aw1 closed. Noise minimized. 08:56 Initial lab(s) drawn, by me, sent to lab. Inserted saline lock: 20 gauge in right aw1 antecubital area, using aseptic technique. 09:04 CT Abd/Pelvis - Without Contrast In Process Unspecified. EDMS 09:34 Ovi Tolliver MD is Referral Physician. sp3 09:43 Provided Education on: N/A. bp 09:43 No provider procedures requiring assistance completed. IV discontinued, intact, bp bleeding controlled, No redness/swelling at site. Pressure dressing applied. 10:01 Valuables Locked in safe. knife sent to security dept.. bd Administered Medications: No medications were administered Medication: 08:54 VIS not applicable for this client. bp Outcome: 09:34 Discharge ordered by MD. sp3 09:43 Discharged to home ambulatory, with family, bp 09:43 Condition: stable 09:43 Discharge instructions given to patient, Instructed on discharge instructions, follow up and referral plans. medication usage, Demonstrated understanding of instructions, follow-up care, medications, Prescriptions given X 1, 09:45 Patient left the ED. bp Signatures: Dispatcher [employer] EDMS Mirian Sherman Rubi rg4 Fracisco Kumar, Chuck Santacruz RN, RN RN ll1 Jigna Blandon MD MD sp3 Radha Ellis aw1 Corrections: (The following items were deleted from the chart) 09:44 09:43 BP 126 / 81; Pulse 85bpm; Resp 16bpm; Pulse Ox 98%; bp bp
[2024-03-09 10:14] VITALS: BP 136/92; TEMP 98; O2SAT 100
== END 2024-03-09 09:45 | disposition home or self-care (01) ==
LOC: ER 08:35
DX: N20.0 Calculus of kidney (principal); Z87.442 Personal history of urinary calculi
CPT/HCPCS: 36415; 74176; 80053; 81001; 82550; 83690; 85025; 99284